=== PATIENT | male | born 1955 | race Caucasian/White ===

== ENCOUNTER 2023-05-30 08:55 | Emergency (ER) | payer MEDICARE, SELFPAY ==
[2023-05-30] VITALS (15 sets, daily range): BP systolic 175–192; BP diastolic 77–99; PULSE 38–50; RESP 7–26; TEMP 35.8; O2SAT 96–99
--- NOTE | ~2023-05-30 | XR_ITS ---
EXAMINATION: XR chest 1V portable DATE: 05/30/2023 09:53 INDICATION: Chest pain TECHNIQUE: frontal view of the chest was obtained. COMPARISON: Chest radiograph dated 05/04/2010 FINDINGS: The lungs remain clear with no focal airspace opacities, pulmonary edema, pleural effusion or pneumot horax. Heart size is normal with prominent left paracardial fat pad Visualized bones and soft tissues are unremarkable. IMPRESSION: 1. No acute cardiopulmonary disease. Reviewed, dictated and finalized at location B. ENT EXPERIENCE COORDINATOR
--- NOTE | 2023-05-30 09:04 | ED.GENADULT ---
HPI - General Adult General Chief complaint: Neck Pain/Injury Stated complaint: neck and left shoulder pain Time Seen by Provider: 05/30/23 09:01 Source: patient Mode of arrival: ambulatory Limitations: no limitations History of Present Illness HPI narrative: 67-year-old male with a history of smoking, BPH, peptic ulcer disease, dyslipidemia,coronary artery disease status post stents 3 years ago and 23 years ago presents to the ER with a 7 day history of -- left shoulder/ left neck/ left arm pain which is continuous without any relation to activity. The patient has been doing some construction work lately. He took a tetanus shot 1 week ago which made his arm sore. In view of his previous history of coronary artery disease/ stents the patient presents to the ER to rule out coronary artery disease. The patient denies any shortness of breath or lightheadedness. Onset (ago): week(s) ( Symptoms started 1 week ago.) Location: neck, left and upper extremity Radiation: non-radiation Severity: moderate Quality: aching Pain Consistency: constant Relieving factors: none Exacerbating factors: none Associated symptoms: denies other symptoms Treatments prior to arrival: none Related Data Home Medications Medication Instructions Recorded Confirmed aspirin 81 mg tablet,delayed 81 mg PO DAILY 05/30/23 05/30/23 release (Adult Low Dose Aspirin) atenolol 25 mg tablet 25 mg PO DAILY 05/30/23 05/30/23 atorvastatin 80 mg tablet 80 mg PO DAILY 05/30/23 05/30/23 paroxetine HCl 20 mg tablet 20 mg PO DAILY 05/30/23 05/30/23 rabeprazole 20 mg tablet,delayed 20 mg PO DAILY 05/30/23 05/30/23 release tamsulosin 0.4 mg capsule 0.4 mg PO DAILY 05/30/23 05/30/23 Allergies Allergy/AdvReac Type Severity Reaction Status Date / Time cephalexin Allergy Unknown Verified 05/30/23 09:07 Review of Systems Review of Systems: All systems reviewed & are unremarkable except as noted in HPI and below Constitutional: Constitutional: Reports as per HPI and Reports no additional constitutional complaints Eyes: Eyes: Reports as per HPI and Reports no additional eye complaints ENT: Comments: Patient is hard of hearing Cardiovascular: Cardiovascular: Reports as per HPI and Reports no additional cardiovascular complaints Respiratory: Respiratory: Reports as per HPI and Reports no additional respiratory complaints Gastrointestinal: Gastrointestinal: Reports as per HPI and Reports no additional gastrointestinal complaints Genitourinary: Genitourinary: Reports no additional male genitourinary complaints Musculoskeletal: Musculoskeletal: Reports no additional musculoskeletal complaints and Reports as per HPI Comments: left neck/ shoulder / arm pain Integumentary/Breasts: Skin/Breast: Reports system reviewed and no additional complaints, except as docu and Reports as per HPI Neurologic: Reports system reviewed and no additional complaints, except as documented and Reports as per HPI Psychiatric: Psychiatric: Reports no additional psychiatric complaints and Reports as per HPI Endocrine: Endocrine: Reports no additional endocrine complaints and Reports as per HPI Hematologic/Lymphatic: Hematologic/Lymphatic: Reports no additional hematologic/lymphatic complaints and Reports as per HPI Allergic/Immunologic: Allergic/Immunologic: Reports no additional allergic/immunologic complaints and Reports as per HPI [facility] Past Medical History Medical History (Updated 05/30/23 @ 10:58 by Joao Mclaughlin MD) Benign prostatic hyperplasia Coronary artery disease Dyslipidemia Hypertension Peptic ulcer disease Surgical History Surgical History (Updated 05/30/23 @ 09:18 by Joao Mclaughlin MD) H/O heart artery stent Social History Social History (Updated 05/30/23 @ 09:18 by Joao Mclaughlin MD) Social History: daily smoker Exam Narrative: blood pressure of 175/86 with a heart rate as low as 47. Const: General: health
--- NOTE | 2023-05-30 10:00 | ECG_ITS ---
Measurements Intervals [place] Rate: 46 P: 71 VT: 182 QRS: 71 QRSD: 98 T: 50 QT: 442 QTc: 391 Interpretive Statements SINUS BRADYCARDIA NO PREVIOUS ECG AVAILABLE FOR COMPARISON Electronically Signed On 05-31-2023 15:24:09 BOILER ASSISTANT OPERATOR by Lorelei Carpio M.D.
[2023-05-30 10:02] LABS: Basophils Absolute Auto 0.04 K/mm3 (0.00-0.10); Basophils Percent Auto 0.7 % (0.0-1.0); Eosinophils Absolute Auto 0.39 K/mm3 (0.02-0.50); Eosinophils Percent Auto 7.1 % (1.0-6.0); Hematocrit 46.1 % (37.0-46.0); Hemoglobin 15.2 g/dL (12.4-15.3); Immature Granulocyte Absolute 0.02 K/mm3 (0.00-0.00); Immature Granulocyte Percent A 0.4 % (0.0-0.0); Lymphocytes Absolute Auto 2.07 K/mm3 (1.10-4.50); Lymphocytes Percent Auto 37.6 % (18.0-42.0); Mean Corpuscular Hemoglobin 29.3 pg (27.0-31.0); Mean Corpuscular Volume 88.8 fL (78.0-102.0); Monocytes Absolute Auto 0.42 K/mm3 (0.10-0.90); Monocytes Percent Auto 7.6 % (2.0-11.0); Neutrophils Absolute Auto 2.6 K/mm3 (1.7-7.2); Neutrophils Percent Auto 46.6 % (50.0-70.0); Platelet Count Result 164 K/mm3 (150-420); Red Blood Count 5.19 M/mm3 (4.70-6.10); Red Cell Distribution Width 12.2 % (11.6-14.4); White Blood Count 5.5 K/mm3 (4.8-10.8)
--- NOTE | 2023-05-30 10:02 | PC.NURSE ---
PT IS SITTING UP ON STRETCHER AWAITING RESULTS AT THIS TIME, NAD NOTED. PT DENIES ANY NEEDS OR COMPLAINTS. WILL CONTINUE TO MONITOR.
[2023-05-30 10:27] LABS: Lactic Acid Reflex 1.1 mmol/L (0.4-2.0)
[2023-05-30 10:33] LABS: Alanine Aminotransferase 26 U/L (16-63); Albumin Level 3.5 g/dL (3.4-5.0); Alkaline Phosphatase 69 U/L (46-116); Anion Gap 7 mmol/L (8-16); Aspartate Amino Transferase 14 U/L (15-37); Bilirubin,Total 0.4 mg/dL (0.00-1.00); Blood Urea Nitrogen 15 mg/dL (7-18); Calcium 8.7 mg/dL (8.5-10.1); Carbon Dioxide 30 mmol/L (21-32); Chloride 103 mmol/L (98-108); Estimated Glomerular Filt Rate > 60; Glucose 136 mg/dL (70-99); NT Pro B Type Natriuretic Pept 158 pg/mL (0-125); Osmolality Calculated 292 mOsm/kg (285-295); Potassium 4.1 mmol/L (3.5-5.1); Sodium 140 mmol/L (136-145); Total Protein 6.9 g/dL (6.4-8.2)
[2023-05-30 10:34] LABS: Thyroid Stimulating Hormone 0.79 uIU/mL (0.36-3.74); Troponin I 9.9 ng/L (0.00-60.4)
== END 2023-05-30 11:04 | disposition home or self-care (01) ==
PROVIDERS: Emergency Provider Internal Medicine Critical Care Medicine
DX: M54.2 Cervicalgia (principal); E78.5 Hyperlipidemia, unspecified; I10 Essential (primary) hypertension; I25.10 Atherosclerotic heart disease of native coronary artery without angina pectoris; Z79.82 Long term (current) use of aspirin; Z79.899 Other long term (current) drug therapy; Z95.5 Presence of coronary angioplasty implant and graft
CPT/HCPCS: 36415; 71045; 80053; 83605; 83880; 84443; 84484; 85025; 93005; 99284

== ENCOUNTER 2023-06-04 20:28 | Emergency (ER) | payer MEDICARE, SELFPAY ==
[2023-06-04 20:29] VITALS: BP 196/115; PULSE 73; RESP 20; TEMP 36.7; O2SAT 96
--- NOTE | 2023-06-04 20:30 | ED.GENADULT ---
HPI - General Adult General Chief complaint: Skin/Abscess/Foreign Body Stated complaint: shingles Time Seen by Provider: 06/04/23 20:29 Source: patient History of Present Illness HPI narrative: 67 years old white male had a recent diagnosis of shingles 3 days ago, started on Valtrex, gabapentin, ibuprofen and lidocaine patch. Patient report can not sleep at night because of the pain, patient been using his hydrocodone with moderate relief. Patient does not have a family physician at this time. He denies any fever, chills, nausea, vomiting Related Data Home Medications Medication Instructions Recorded Confirmed aspirin 81 mg tablet,delayed 81 mg PO DAILY 05/30/23 06/04/23 release (Adult Low Dose Aspirin) atenolol 25 mg tablet 25 mg PO DAILY 05/30/23 06/04/23 atorvastatin 80 mg tablet 80 mg PO DAILY 05/30/23 06/04/23 paroxetine HCl 20 mg tablet (Paxil) 20 mg PO DAILY 05/30/23 06/04/23 rabeprazole 20 mg tablet,delayed 20 mg PO DAILY 05/30/23 06/04/23 release (AcipHex) tamsulosin 0.4 mg capsule (Flomax) 0.4 mg PO DAILY 05/30/23 06/04/23 lidocaine 5 % topical patch 1 patch topical DAILY PRN Pain 06/04/23 06/04/23 (Lidoderm) valacyclovir 1 gram tablet 1,000 mg PO DAILY 06/04/23 06/04/23 (Valtrex) Allergies Allergy/AdvReac Type Severity Reaction Status Date / Time cephalexin Allergy Unknown Verified 06/04/23 20:43 Review of Systems Review of Systems: All systems reviewed & are unremarkable except as noted in HPI and below PMFSH Past Medical History Medical History Benign prostatic hyperplasia Coronary artery disease Dyslipidemia Hypertension Peptic ulcer disease Surgical History Surgical History H/O heart artery stent Social History Social History Social History: daily smoker Exam Narrative: General appearance: Well-developed, well-nourished Skin: Normal color, blisters like rash on erythematous surface involving left upper chest left upper back consistent with shingles Head: Normocephalic, nontraumatic Eyes: Clear conjunctiva ENT: Oropharynx normal, ears normal, nose normal Neck: Supple, nontender Chest and respiratory: Airway patent, no respiratory distress, no accessory muscle use Heart: Regular rate/rhythm Abdomen: Soft, nontender, no organomegaly, quiet bowel sounds Musculoskeletal: Normal range of motion, nontender back Neurologic: Alert and oriented ?3, HAIRPIECE STYLIST is normal as tested, no gross motor deficit Course Vital Signs Vital signs: Vital Signs Temperature 36.7 C 06/04/23 20:29 Pulse Rate 73 06/04/23 20:29 Respiratory Rate 20 06/04/23 20:29 Blood Pressure 196/115 H 06/04/23 20:29 Pulse Oximetry 96 06/04/23 20:29 Oxygen Delivery Room Air 06/04/23 20:29 Temperature 36.7 C 06/04/23 20:29 Pulse Rate 73 06/04/23 20:29 Respiratory Rate 20 06/04/23 20:29 Blood Pressure 196/115 H 06/04/23 20:29 Pulse Oximetry 96 06/04/23 20:29 Oxygen Delivery Room Air 06/04/23 20:29 Medical Decision Making MDM Narrative Medical decision making narrative: herpetic neurology a is my concern. My plan to discharge patient on [place] 5/324, 12 tablets and till establish with a new family physician. Patient was advised to use calamine lotion [id number]. Vital Signs Vital Signs: Vital Signs Temperature 36.7 C 06/04/23 20:29 Pulse Rate 73 06/04/23 20:29 Respiratory Rate 20 06/04/23 20:29 Blood Pressure 196/115 H 06/04/23 20:29 Pulse Oximetry 96 06/04/23 20:29 Oxygen Delivery Room Air
[2023-06-04 20:54] VITALS: BP 180/96
== END 2023-06-04 20:56 | disposition home or self-care (01) ==
LOC: CHSED 20:53
PROVIDERS: Emergency Provider Emergency Medicine
DX: B02.9 Zoster without complications (principal); I25.10 Atherosclerotic heart disease of native coronary artery without angina pectoris; E78.5 Hyperlipidemia, unspecified; I10 Essential (primary) hypertension; F17.200 Nicotine dependence, unspecified, uncomplicated; Z79.82 Long term (current) use of aspirin; Z79.899 Other long term (current) drug therapy
CPT/HCPCS: 99283

== ENCOUNTER 2023-06-20 10:14 | Emergency (ER) | payer MEDICARE, SELFPAY ==
[2023-06-20 11:30] VITALS: BP 183/93; PULSE 51; RESP 16; TEMP 36.6; O2SAT 99
--- NOTE | 2023-06-20 12:45 | ED.GENADULT ---
HPI - General Adult General Chief complaint: Skin/Abscess/Foreign Body Stated complaint: shingles, hit head weeks ago, wanted him seen Time Seen by Provider: 06/20/23 12:02 History of Present Illness HPI narrative: 67-year-old male presenting to the emergency department for evaluation of persistent left shoulder shingles pain. Patient was diagnosed with shingles a few weeks ago and had been on antiviral along with gabapentin. Patient states he is also taking Tylenol and ibuprofen. Patient felt that he was having adverse reaction to the gabapentin and was excessively tired so he decreased his gabapentin dose. Patient states that his was concerned due to his having excessive sleeplessness at night due to the pain so she encouraged him to be evaluated. Related Data Home Medications Medication Instructions Recorded Confirmed aspirin 81 mg tablet,delayed 81 mg PO DAILY 05/30/23 06/04/23 release (Adult Low Dose Aspirin) atenolol 25 mg tablet 25 mg PO DAILY 05/30/23 06/04/23 atorvastatin 80 mg tablet 80 mg PO DAILY 05/30/23 06/04/23 paroxetine HCl 20 mg tablet (Paxil) 20 mg PO DAILY 05/30/23 06/04/23 rabeprazole 20 mg tablet,delayed 20 mg PO DAILY 05/30/23 06/04/23 release (AcipHex) tamsulosin 0.4 mg capsule (Flomax) 0.4 mg PO DAILY 05/30/23 06/04/23 lidocaine 5 % topical patch 1 patch topical DAILY PRN Pain 06/04/23 06/04/23 (Lidoderm) valacyclovir 1 gram tablet 1,000 mg PO DAILY 06/04/23 06/04/23 (Valtrex) Allergies Allergy/AdvReac Type Severity Reaction Status Date / Time cephalexin Allergy Unknown Verified 06/04/23 20:43 Review of Systems Review of Systems: All systems reviewed & are unremarkable except as noted in HPI and below PMFSH Past Medical History Medical History Benign prostatic hyperplasia Coronary artery disease Dyslipidemia Hypertension Peptic ulcer disease Surgical History Surgical History H/O heart artery stent Social History Social History Social History: daily smoker Exam Narrative: APPEARANCE: Well appearing, no pain, no distress, well-nourished. HEAD: normocephalic, atraumatic. EYES: PERRLA/EOMI, conjunctivae clear. NOSE: Normal no drainage RESPIRATORY: Airway patent, respirations nonlabored. Clear to auscultation bilaterally, no rales, rhonchi, wheezing. CARDIOVASCULAR: Regular rate and rhythm without murmurs rubs or gallops. ABDOMINAL: Soft, nontender, nondistended, normal bowel sounds MUSCULOSKELETAL: Moves all extremities. Strength/ROM intact, No edema, No calf tenderness. NEURO: Alert. Cranial nerves II through XII intact. Good gait. Good coordination SKIN: Healing shingles rash on left shoulder Course Vital Signs Vital signs: Vital Signs Temperature 97.8 F 06/20/23 11:30 Pulse Rate 51 L 06/20/23 11:30 Respiratory Rate 16 06/20/23 11:30 Blood Pressure 183/93 H 06/20/23 11:30 Pulse Oximetry 99 06/20/23 11:30 Oxygen Delivery Room Air 06/20/23 11:30 Temperature 97.8 F 06/20/23 11:30 Pulse Rate 51 L 06/20/23 11:30 Respiratory Rate 16 06/20/23 11:30 Blood Pressure 183/93 H 06/20/23 11:30 Pulse Oximetry 99 06/20/23 11:30 Oxygen Delivery Room Air 06/20/23 11:30 Medical Decision Making [facility] Narrative Medical decision making narrative: 67-year-old male presenting to the emergency department for evaluation of left anterior shoulder shingles pain. Patient declined any medications for pain control in the emergency department. Patient was provided [place] for pain control. Patient was advised to decrease his Tylenol dose but continue to take scheduled ibuprofen. Patient was also advised he may continue to take the gabapentin but may decrease this. Differential Diagnosis Differential Diagnosis: Shingles, cellulitis, and retrograde Vital Signs Vital Signs:
== END 2023-06-20 13:08 | disposition home or self-care (01) ==
LOC: ANHED 12:56
PROVIDERS: Emergency Provider Emergency Medicine; PCP Nurse Practitioner
DX: B02.9 Zoster without complications (principal); I25.10 Atherosclerotic heart disease of native coronary artery without angina pectoris; E78.5 Hyperlipidemia, unspecified; I10 Essential (primary) hypertension; N40.0 Benign prostatic hyperplasia without lower urinary tract symptoms; Z95.5 Presence of coronary angioplasty implant and graft; Z87.11 Personal history of peptic ulcer disease; F17.200 Nicotine dependence, unspecified, uncomplicated
CPT/HCPCS: 99283